=== PATIENT | male | born 2000 | race Two or more races ===

== ENCOUNTER 2023-08-22 14:13 | Emergency (ER) | payer SELFPAY | END 2023-08-22 15:31 | disposition home or self-care (01) | LOC: MW.ED 14:13 | DX: B08.1 Molluscum contagiosum (principal); E11.9 Type 2 diabetes mellitus without complications; F17.210 Nicotine dependence, cigarettes, uncomplicated; Z75.8 Other problems related to medical facilities and other health care | CPT/HCPCS: 99283 ==

== ENCOUNTER 2023-11-10 19:28 | Emergency (ER) | payer OTHER | END 2023-11-10 20:08 | disposition left against medical advice (07) | LOC: MW.ED 19:28 | DX: Z02.89 Encounter for other administrative examinations (principal); Z53.29 Procedure and treatment not carried out because of patient's decision for other reasons; E11.9 Type 2 diabetes mellitus without complications; Z75.8 Other problems related to medical facilities and other health care | CPT/HCPCS: 82947; 99282; 99283 ==